=== PATIENT | female | born 1960 | race Hispanic/Latino ===

== ENCOUNTER 2024-11-25 16:44 | Emergency (ER) | payer BC ==
[~2024-11-25] VITALS: Ht 160 cm; Wt 88.9 kg
--- NOTE | 2024-11-25 16:48 | NUR ---
BG 129
--- NOTE | 2024-11-25 16:56 | ERN ---
ED Note History of Present Illness Stated Complaint: STROKE SYMPTOMS Chief Complaint: Stroke Symptoms Time Seen by MD: 16:50 Dictation: PATIENT IS A 64-YEAR-OLD FEMALE HERE WITH HER SON WITH COMPLAINTS AT APPROXIMATELY 16:20 THIS AFTERNOON THEY WERE EATING. THE SON STATES THAT HE SAW HIS MOTHER WITH A RIGHT FACIAL DROOP AND SHE WAS UNABLE TO USE HER RIGHT HAND. PATIENT ALSO HAD GARBLED SPEECH HE SAID THIS LASTED MAYBE 1-2 MINUTES AND THEN CURRENTLY HAS NOW COMPLETELY RESOLVED. NIH 0 SCORE ON APPROACH , SHE DOES DEMONSTRATES SOME MILDLY DIMINISHED PULMONARY SPECIALIST STRENGTH TO THE RIGHT HAND. SHE STATES SHE HAD A SMALL TIA SEVERAL YEARS AGO. HISTORY OF DIABETES HYPERTENSION CHOLESTEROL. IN HIS AT THE BEDSIDE. BEDSIDE BLOOD SUGAR IS 129. Allergies: Coded Allergies: Penicillins (Unverified Allergy, Unknown, 11/25/24) morphine (Unverified Allergy, Unknown, 11/25/24) Past Medical History History: Not Applicable RN Note Reviewed/Agreed w/PFSH: Yes Review of System Dictation CONSTITUTIONAL: NEGATIVE EXCEPT FOR HPI HEAD/FACE: NEGATIVE EXCEPT FOR HPI EENT: NEGATIVE EXCEPT FOR HPI RESPIRATORY: NEGATIVE EXCEPT FOR HPI GASTROINTESTINAL/ABDOMINAL: NEGATIVE EXCEPT FOR HPI GENITOURINARY: NEGATIVE EXCEPT FOR HPI MUSCULOSKELETAL: NEGATIVE EXCEPT FOR HPI INTEGUMENTARY: NEGATIVE EXCEPT FOR HPI NEUROLOGICAL/PSYCH: NEGATIVE EXCEPT FOR HP RIGHT HAND WEAKNESS AND RIGHT FACIAL DROOP. HEMATOLOGIC/LYMPHATIC: NEGATIVE EXCEPT FOR HPI ALL SYSTEMS NEGATIVE, EXCEPT NOTED ABOVE. 13 POINT REVIEW OF SYSTEMS ASSESSED AND ALL NEGATIVE EXCEPT FOR ABOVE. Initial Vital Sign VS Vital Signs Date Time Temp Pulse Resp B/P (MAP) Pulse Ox O2 Delivery O2 Flow Rate FiO2 11/25/24 16:48 98.4 69 20 176/83 95 Room Air 11/25/24 16:51 0 21 Physical Exam Dictation VITAL SIGNS REVIEWED GENERAL APPEARANCE: ALERT, ORIENTED X 3, NO ACUTE DISTRESS, WELL DEVELOPED, NOURISHED. OBESE, NO COMPLAINTS OF PAIN. HEAD AND FACE: NON-TRAUMATIC. EYES: PERRL, PINK CONJUNCTIVAS, EYELID NO TRAUMA, ANTERIOR CHAMBER WITH ARCUS SENILIS. EOMS INTACT NO VISUAL FIELD CUT EARS: PINNAS INTACT AND NO SIGNS OF TRAUMA OR ERYTHEMA EAR CANALS CLEAR AND NO DISCHARGE TM NO ERYTHEMA NOSE: NO DISCHARGE, NO BLEEDING. OROPHARYNX: MOUTH NORMAL, TONGUE PINK, PHARYNX CLEAR,NO ERYTHEMA, TONSILS NO EXUDATES, NO ABSCESSES NOTED, MUCOUS MEMBRANE MOIST NECK: SUPPLE, NON-TENDER, NO THYROMEGALY, NO MASSES, NO JVD, NO BRUITS BREAST:DEFERRED CHEST:NO TENDERNESS, NO CREPITUS, NO PARADOXICAL MOVEMENT, NO RETRACTIONS LUNGS:CLEAR, WELL-VENTILATED, SYMMETRIC, NO RALES, NO WHEEZING, NO RHONCHI, NO STRIDOR, GOOD BREATH SOUNDS BILATERALLY HEART: REGULAR RATE, REGULAR RHYTHM, NO MURMUR, NO GALLOPS VASCULAR: NO PERIPHERAL EDEMA, ABDOMEN: SOFT, POSITIVE BOWEL SOUNDS, NONDISTENDED, NO GUARDING, NONTENDER, NO REBOUND, NO MASSES NO HEPATOMEGALY, NO SPLENOMEGALY, NO AVILA'S SIGN, NO HERNIAS. RECTAL: DEFERRED GENITAL: DEFERRED NEUROLOGICAL: NORMAL SPEECH, MOTOR FUNCTION INTACT, SENSORY FUNCTION INTACT NIH IS 0 4+5 PULMONARY SPECIALIST STRENGTH RIGHT ALL ELSE IS 5+5 ESSENTIALLY INTACT TO ALL EXTREMITIES PATIENT WAS ABLE TO INDEPENDENTLY GO FROM WHEELCHAIR TO BED. MUSCULOSKELETAL: NECK NONTENDER, FULL RANGE OF MOTION, BACK NONTENDER, FULL RANGE OF MOTION, EXTREMITIES: NONTENDER, FULL RANGE OF MOTION SKIN: COLOR PINK, DRY, NO TURGOR, NO RASH, NO LACERATIONS, NO ABRASIONS, NO CONTUSIONS. LYMPHATIC: DEFERRED Results (Laboratory/Radiology) Laboratory/Radiology Laboratory Tests Test 11/25/24 16:54 11/25/24 18:11 White Blood Count 14.9 K/uL (4.8-10.8) H Red Blood Count 4.65 MIL/uL (4.00-5.50) Hemoglobin 13.4 g/dL (12.0-16.0) Hematocrit 40.8 % (36-48) Mean Corpuscular Volume 87.7 fL (79-99) Mean Corpuscular Hemoglobin 28.8 pg (27.0-33.0) Mean Corpuscular Hemoglobin Concent 32.8 g/dL (32.0-36.0) Red Cell Distribution Width 13.2 % (11.0-15.5) Platelet Count 323 K/uL (130-400) Mean Platelet Volume 9.8 fL (7.5-10.5) Immature Granulocyte % (Auto) 0.5 % (0-1) Neutrophils (%) (Auto) 54.2 % (40.0-77.0) Lymphocytes (%) (Auto) 24.2 % (21.0-51.0) Monocytes (%) (Auto) 7.9 % (3.0-13.0) Eosinophils (%) (Auto) 12.7 % (0.0-8.0) H Basophils (%) (Auto) 0.5 % (0.0-5.0) Neutrophils # (Auto) 8.1 K/uL (1.8-7.7) H Lymphocytes # (Auto) 3.6 K/uL (1.0-4.8) Monocytes # (Auto) 1.2 K/uL (0.1-1.0) H Eosinophils # (Auto) 1.88 K/uL (0.00-0.70) H Basophils # (Auto) 0.08 K/uL (0.00-0.20) Absolute Immature Granulocyte (auto 0.07 K/uL (0-1) Nucleated Red Blood Cells 0.0 % (0.0-0.19) Prothrombin Time 10.6 SEC (9.6-11.6) Prothromb Time International Ratio 1.00 (0.85-1.15) Activated Partial Thromboplast Time 25.4 SEC (26.3-35.5) L Sodium Level 141 mmol/L (136-145) Potassium Level 4.3 mmol/L (3.5-5.1) Chloride Level 102 mmol/L (101-111) Carbon Dioxide Level 27 mmol/L (21-32) Blood Urea Nitrogen 28 mg/dL (7-18) H Creatinine 1.2 mg/dL (0.5-1.0) H Glomerular Filtration Rate Calc 51 mL/min (>90) Random Glucose 128 mg/dL (70-105) H Total Calcium 9.3 mg/dL (8.5-10.1) Total Bilirubin 0.4 mg/dL (0.2-1.0) Aspartate Amino Transf (AST/SGOT) 27 U/L (10-37) Alanine Aminotransferase (ALT/SGPT) 46 U/L (12-78) Alkaline Phosphatase 85 U/L (50-136) Troponin I High Sensitivity 10 ng/L (4-50) Total Protein 8.0 g/dL (6.0-8.3) Albumin 4.2 g/dL (3.5-5.0) Urine Color YELLOW (YELLOW) Urine Appearance CLEAR (CLEAR) Urine pH 5.5 (5.0-8.0) Urine Specific [place] 1.021 (1.001-1.031) Urine Protein NEGATIVE mg/dL (NEGATIVE) Urine Glucose (UA) NEGATIVE mg/dL (NEGATIVE) Urine Ketones NEGATIVE mg/dL (NEGATIVE) Urine Occult Blood NEGATIVE (NEGATIVE) Urine Nitrate NEGATIVE (NEGATIVE) Urine Bilirubin NEGATIVE mg/dL (NEGATIVE) Urine Urobilinogen 0.2 mg/dL (0.2-1.0) Urine Leukocyte Esterase 75 [place]/uL (NEGATIVE) H Urine RBC 2-5 /HPF (0-1) H Urine WBC 2-5 /HPF (0-1) H Urine Squamous Epithelial Cells RARE /HPF (0-2) Urine Bacteria RARE /HPF (None Seen) Urine Hyaline Casts 0-1 /LPF (0-1 /LPF) [place] [id number] [address] IMAGING REPORT Signed PATIENT: TONEY JAMIL MR#: [id number] : 1960 SEX: F AGE: 64 LOCATION: [facility] ORDER 49 STATUS: REG REPORT#: [id number] SERVICE 48 REASON: WEAKNESS ORDERING PHYSICIAN: AARON CARVALHO MD PROCEDURE: HEAD WO - CT HEAD/BRAIN W/O CONTRAST EXAM: CT Head Without IV contrast. CLINICAL HISTORY: WEAKNESS TECHNIQUE: Axial computed tomography images of the head/brain without intravenous contrast. COMPARISON: None provided. FINDINGS: BRAIN: No acute bleed or infarct. Mild chronic ischemic change. VENTRICLES: No hydrocephalus. ORBITS: The orbits are unremarkable. SINUSES AND MASTOIDS: The paranasal sinuses and mastoid air cells are clear. BONES: No fracture. SOFT TISSUES: Unremarkable. IMPRESSION: No acute bleed or infarct. Mild chronic ischemic change. /[facility] Reviewed?: Yes EKG Comment: EKG NORMAL SINUS RHYTHM/HEART RATE 66/AXIS NORMAL/NO ECTOPY ED Course ED Course Orders Procedure Category Date Status Time Cbc With Differential LAB 11/25/24 Complete 16:49 Comprehensive LAB 11/25/24 Complete Metabolic Panel 16:49 Pt And Ptt LAB 11/25/24 Complete 16:49 Troponin I High LAB 11/25/24 Complete Sensitivity 16:49 12 Lead Ekg Tracing- EKG 11/25/24 Logged Technical 16:49 Ct Head/Brain W/O CT 11/25/24 Resulted Contrast 16:49 Bedside Glucose CPOE 11/25/24 Transmitted Fingerstick 16:50 Urinalysis Profile LAB 11/25/24 Complete 17:10 Clopidogrel 300mg Tab PHA 11/25/24 In Process (Plavix 300mg Tab) 18:00 Aspirin 325mg Tab PHA 11/25/24 In Process (Aspirin 325mg Tab) 18:00 Culture Urine AASHISH 11/25/24 Logged 18:24 Current Medications Medications (Trade) Dose Ordered Sig/Rick Route PRN Reason Start Time Stop Time Status Last Admin Dose Admin Aspirin (Aspirin 325mg Tab) 325 mg ONCE PO 11/25/24 18:00 11/25/24 22:00 11/25/24 17:52 Clopidogrel Bisulfate (plaVIX 300MG TAB) 300 mg ONCE PO 11/25/24 18:00 11/25/24 22:00 11/25/24 17:51 Vital Signs Date Time Temp Pulse Resp B/P (MAP) Pulse Ox O2 Delivery O2 Flow Rate FiO2 11/25/24 18:33 164/76 Room Air* 0 21 11/25/24 18:20 99.1 62 15 180/93 96 Room Air* 0 21 11/25/24 16:51 99.1 68 18 160/88 96 Room Air* 0 21 11/25/24 16:48 98.4 69 20 176/83 95 Room Air 1718/CT OF THE HEAD IS NEGATIVE, BEDSIDE BLOOD SUGAR 129. WE WILL FOLLOW UP FOR SOC WITH NEUROLOGIST AND ANTICIPATE TRANSFER TO HIGHER LEVEL OF CARE. 1725/SPOKE WITH PATIENT AND HER SON AT LENGTH PRIOR TO THE SOC. PATIENT STATES SHE HAD A SIMILAR EPISODE ON FRIDAY AND WENT TO A [facility] AND WAS TOLD BY THE DOCTOR THERE THAT THERE WAS NOTHING SHE COULD DO SINCE THE SYMPTOMS HAD RESOLVED AND TREATED HER AFTER LABS AND URINE WAS COLLECTED FOR UTI. SHE IS CURRENTLY ON MACROBI SHE THEN STATES SHE SAW HER PRIMARY CARE DO CTOR TODAY AND TOLD HER THAT IS SINCE THE SYMPTOMS HAD RESOLVED THAT SHE COULD GONE HOME. IF SHE HAD ANY MORE SYMPTOMS TO GO TO THE NEAREST EMERGENCY ROOM. 1730/spoke with /tele neurology. He said patient has NIH score was 0 and she was at baseline at the present time. He said if the platelets were in the normal range and there was no bleed on the CT to administer Plavix 300 mg p.o. along with the [id number] p.o. Differentials could be early CVA versus focal seizure. Recommended patient be transferred to higher level of care for Neurology workup to rule out focal seizure versus CVA. We will administer the medications recommended and initiate transfer patient her son agreed to be transferred to a higher level of care. 1738/Reshma RN tellers supervisor and made her aware of need for transfer to higher level of care. 173/SPOKE WITH MOHINDER AT THE [facility] TRANSFER CENTER SHE WAS GOING TO CONNECT ME WITH HOWEVER HE WAS UNAVAILABLE AT THAT TIME. SHE STATES SHE WILL CALL BACK IN A MINUTE SOON SHE HAS A PHYSICIAN AVAILABLE. PATIENT REMAINS WITH A NIH OF 0. BLOOD PRESSURE 164/76 RIGHT PULMONARY SPECIALIST IS MILDLY DIMINISHED. 1849/SPOKE WITH MOHINDER AT THE [facility] TRANSFER AND ALSO DR ARREOLA, REVIEWED HPI CURRENT NIH MY CONSULTATION WITH /NEUROLOGIST. HE IS AWARE THAT PATIENT HAS RECEIVED PLAVIX 300 MG AND ASPIRIN 3AND THAT SHE HAD HAD A SIMILAR EPISODE ON FRIDAY AND IT BE ONTO A LOCAL URGENT CARE AND TREATED FOR UTI. SHE IS CURRENTLY ON MACROBID AND HE WAS MADE AWARE THE ALSO. HE ACCEPTED PATIENT IN TRANSFER. 2 HEART Score Response (Comments) Value History: Low suspicion (0) 0 Age: 45-65yrs (+1) 1 Risk Factors: 3+ risk factors (+2) 2 Initial Troponin: Normal limit (0) 0 Total 3 Medical Decision Making MDM MDM: DIFFERENTIAL DIAGNOSIS:/ELECTROLYTE IMBALANCE/DEHYDRATION/HYPOGLYCEMIA/INFECTION/ENCEPHALOPATHY/TIA RATIONALE: TESTS CONSIDERED AND ORDERED SECONDARY TO SHARED DECISION MAKING INCLUDE: LABS, ECG AND RADIOLOGY PREVIOUS OUTSIDE RECORDS REVIEWED: OLD ER VISITS. RISK OF COMPLICATION AND/OR MORBIDITY OR MORTALITY OF PATIENT MANAGEMENT: N MODERATE MEDICATIONS-PER MEDICATION RECONCILIATION NEED FOR HOSPITALIZATION: PATIENT DOES MEET CRITERIA FOR HOSPITALIZATION. PATIENT WILL BE TRANSFERRED TO A HIGHER LEVEL OF CARE FOR NEUROLOGY NEED FOR EMERGENCY MAJOR/MINOR SURGERY: NO THERE ARE NO SOCIAL CONCERNS WITH THIS PATIENT. PRESCRIPTION DRUG MANAGEMENT PRESCRIPTIONS WILL INCLUDE SYMPTOMATIC CARE PATIENT'S PRIOR EXTERNAL MEDICAL RECORDS FROM OTHER ER VISITS WERE REVIEWED BY ME INDICATED. PRIOR TESTING AND RESULTS FROM PREVIOUS VISITS WERE REVIEWED. PRIOR TESTS WERE TAKEN INTO ACCOUNT WITH MEDICAL DECISION MAKING AND RESOURCE UTILIZATION, INDEPENDENT HISTORIAN/HISTORIANS WERE USED TO OBTAIN COMPLETE MEDICAL HISTORY. I INDEPENDENTLY INTERPRETED THE TEST THAT WERE PERFORMED, RESULTS WERE REVIEWED BY ME AND CONSIDERED FINDINGS ON RADIOLOGY IF ORDERED. MEDICAL MANAGEMENT AND EXAMINATION INTERPRETATION DISCUSSIONS WERE HAD BY ME WITH OTHER QUALIFIED HEALTHCARE PROFESSIONALS INDICATED FOR THE PATIENT'S CARE. DX & DISP Disposition: Transfer Decision to Admit Time: 17:38 Departure Impression: Primary Impression: TIA (transient ischemic attack) Additional Impressions: Leukocytosis, Stage 3 chronic kidney disease, Diabetes mellitus with hyperglycemia Condition: Stable Additional Instructions: FOLLOW-UP WITH PRIMARY CARE PROVIDER IN 1 TO 2 DAYS. TAKE MEDICATIONS DIRECTED HERE IN THE EMERGENCY ROOM. OKAY TO CONTINUE HOME MEDICATIONS UNLESS OTHERWISE DISCUSSED DURING YOUR VISIT IN THE EMERGENCY ROOM TODAY. RETURN TO YOUR NEAREST EMERGENCY ROOM IF SYMPTOMS WORSEN OR IF THERE IS NO IMPROVEMENT. CALL 911 IF YOU NEED IMMEDIATE ASSISTANCE. TAKE TYLENOL OR MOTRIN [id number] NEEDED AND IF NO CONTRAINDICATIONS ARE PRESENT. INCREASE ORAL HYDRATION. A WOUND CULTURE OR URINE CULTURE WAS ORDERED HERE IN THE EMERGENCY ROOM DEPARTMENT PLEASE FOLLOW-UP WITH PRIMARY CARE PROVIDER AND ADVISE THEM TO GET REPEAT PORTS FROM OUR FACILITY. IF YOU HAD ANY DUNIA WRAP/SPLINTS THAT WERE APPLIED HERE, PLEASE DO NOT REMOVE THEM UNTIL YOU SEE YOUR PRIMARY CARE OR SPECIALTY. F FOLLOW ALL RECOMMENDATIONS AND TREATMENTS FROM YOUR DOCTOR AT [facility] I have reviewed the case, and I agree with, Diagnosis and Plan BERT MICHELLE NP Nov 25, 2024 16:56
--- NOTE | 2024-11-25 17:00 | NUR ---
RETURNED FRPM CT
[2024-11-25 17:10] LABS: IMMATURE GRANULOCYTE ABSOLUTE 0.07 K/uL (0-1); NUCLEATED RED BLOOD CELLS 0.0 % (0.0-0.19); PLATELET COUNT (AUTO) 323 K/uL (130-400); RED BLOOD CELL COUNT(AUTO) 4.65 MIL/uL (4.00-5.50); RED CELL DISTRIBUTION WIDTH 13.2 % (11.0-15.5); WHITE BLOOD COUNT (AUTO) 14.9 K/uL (4.8-10.8)
[2024-11-25 17:16] LABS: INR 1.0 (0.85-1.15)
--- NOTE | 2024-11-25 17:16 | HMCIMG ---
EXAM: CT Head Without IV contrast. CLINICAL HISTORY: WEAKNESS TECHNIQUE: Axial computed tomography images of the head/brain without intravenous contrast. COMPARISON: None provided. FINDINGS: BRAIN: No acute bleed or infarct. Mild chronic ischemic change. VENTRICLES: No hydrocephalus. ORBITS: The orbits are unremarkable. SINUSES AND MASTOIDS: The paranasal sinuses and mastoid air cells are clear. BONES: No fracture. SOFT TISSUES: Unremarkable. IMPRESSION: No acute bleed or infarct. Mild chronic ischemic change. /[place]
[2024-11-25 17:23] LABS: GLUCOSE,RANDOM 128.0 mg/dL (70-105); SODIUM SERUM 141.0 mmol/L (136-145); UREA NITROGEN, BLOOD 28.0 mg/dL (7-18)
[2024-11-25 17:24] LABS: CREATININE 1.2 mg/dL (0.5-1.0); GLOMERULAR FILTR. RATE CALC 51.0 mL/min (>90)
[2024-11-25 17:30] LABS: ASPARTATE AMINOTRANSFERASE 27.0 U/L (10-37); TOTAL PROTEIN, SERUM 8.0 g/dL (6.0-8.3)
[2024-11-25] MEDS: ASPIRIN 325MG TAB PO SCH (17:52)
[2024-11-25 18:20] VITALS: RESP 15; O2SAT 96
[2024-11-25 18:21] LABS: APPEARANCE,URINE CLEAR (CLEAR); GLUCOSE, URINE (UA) NEGATIVE (NEGATIVE); LEUKOCYTE ESTERASE ,URINE 75 Leu/uL (NEGATIVE); NITRATE,URINE NEGATIVE (NEGATIVE); OCCULT BLOOD,URINE NEGATIVE (NEGATIVE)
[2024-11-25 18:24] LABS: ADD UA MICROSCOPIC YES
[2024-11-25 18:26] LABS: HYALINE CASTS, URINE 0-1 /LPF (0-1 /LPF); SQUAMOUS EPITHELIAL CELL,UR RARE /HPF (0-2)
--- NOTE | 2024-11-25 19:21 | BSKYNEURO ---
[facility] Procedure Note [facility] Consult Consult [facility] Note # Demographics Consult Type: Acute Stroke Level 1 (0-4.5 hrs) Patient Location: Emergency Room First Name: TONEY Last Name: LOULOU Date of : 1960 Age: 64 Gender: Female Facility: [facility] Time of Initial Page (Central Time): 11/25/2024 17:22 First Contact with Site (Central Time): 11/25/2024 17:24 # HPI Chief Complaint: - weakness (focal) Handedness: Right History: 64 yo F with PMHx of HTN and DM, who developed sudden onset right facial droop and right hand weakness at around 4:20 PM today. Patient's symptoms resolved with 10 minutes. Patient reported to have couple of similar episodes last week. Patient is back to baseline by the time she arrived to ED. Neuro exam nonfocal. Duration: - resolved # Scores Time of exam and NIHSS (Central Time): 11/25/2024 17:30 Level of Consciousness 1a: [0] = Alert; keenly responsive LOC Questions 1b: [0] = Answers both questions correctly LOC Commands 1c: [0] = Performs both tasks correctly Best Gaze 2: [0] = Normal Visual 3: [0] = No visual loss Facial Palsy 4: [0] = Normal symmetrical movements Motor Arm Left 5a: [0] = No drift Motor Arm Right 5b: [0] = No drift Motor Leg Left 6a: [0] = No drift Motor Leg Right 6b: [0] = No drift Limb Ataxia 7: [0] = Absent Sensory 8: [0] = Normal Best Language 9: [0] = No aphasia Dysarthria 10: [0] = Normal Extinction and Inattention 11: [0] = No abnormality NIHSS Total: 0 # Data Head CT: - no bleed # Assessment Impression: - Stroke Mimic Patient would benefit from further evaluation with MRI brain and Routine EEG. Differential Diagnosis: - Seizure - Transient Ischemic Attack - Ischemic Stroke (Acute) # Plan Thrombolytic/Intervention: NOT IV Thrombolysis or IA Intervention candidate Thrombolytic Exclusion (< 3 hour window): - Individualized disability discussion had with the patient and/or family, and they have determined the current deficits to be non-disabling and do not wish to proceed with thrombolytic - NIHSS = 0 Intraarterial Exclusion: - clinical exam not consistent with presence of large vessel occlusion (LVO), can reconsider if LVO found on vascular imaging Target Blood Pressure: - SBP < 220 - DBP < 120 Permissive HTN first 24 hrs, then normotensive Labs: - hemoglobin A1c - lipid panel Imaging: (urgency: STAT): - CT Head without contrast AND call back with results if abnormal - MRI Brain without contrast - MR Angiogram Head without contrast - MR Angiogram Neck with contrast Diagnostic Test: - echo with bubble study - EEG Therapy/Evaluation: - NPO until swallow evaluation - PT/OT evaluation - speech/swallow consultation Medication: ASA 325 mg x 1 Plavix 300 mg x 1 DAPT with ASA 81 mg QD and Plavix 75 mg QD for 21 days then ASA 81 mg QD monotherapy Other: - If patient has any neurological deterioration please call me back immediately - I have discussed my recommendations with the referring provider - telemetry monitoring - permissive hypertension Plan discussed with patient in detail, all questions answered. Patient agrees with current management plan after discussion. Disposition: admit # Logistics Attestation of consult completion: The patient is located at: [facility]. Facility staff participated in the visit. I performed this telemedicine visit from my offsite office utilizing interactive 2 way audio and visual telecommunication technology at the request of the onsite emergency room provider. Total time spent in telemedicine encounter: I spent 21 minutes reviewing clinical data and/or imaging, obtaining history, examining the patient, communicating with the onsite care team, and in preparation of this report. # Demographics First Name: TONEY Last Name: JAMIL Facility: [facility] Neuro Consult Order placed for: Yes TAM GOVEA MD Nov 25, 2024 19:21
--- NOTE | 2024-11-25 20:00 | NUR ---
stec contacted at this time
--- NOTE | 2024-11-25 20:08 | NUR ---
report provided to giovanna [place] [facility] at this time
[2024-11-25 20:25] VITALS: BP 166/85; PULSE 66; TEMP 99
--- NOTE | 2024-11-25 20:26 | NUR ---
notified elodia tyson of stect arrival and eta of pt
--- NOTE | 2024-11-26 06:49 | EKG ---
[facility] Test Date: 2024-11-25 Test Time: 17:08:06 Pat Name: TONEY JAMIL Department: [facility] Room: Gender: F Department Administrator: [id number] : 1960 Requested By: AARON CARVALHO Order Number: [id number] Reading MD: Chandan John Measurements Intervals [place] Rate: 66 P: 25 ID: [id number] QRS: 32 QRSD: 98 T: 37 QT: 437 QTc: 459 Interpretive Statements Sinus rhythm No previous ECG available for comparison Electronically Signed On 11-26-2024 10:56:15 CDT by Chandan John Please click the below link to view image of tracing.
== END 2024-11-25 20:35 | disposition short-term general hospital (02) ==
LOC: EDH 16:44
DX: G45.9 Transient cerebral ischemic attack, unspecified (principal); D72.829 Elevated white blood cell count, unspecified; I12.9 Hypertensive chronic kidney disease with stage 1 through stage 4 chronic kidney disease, or unspecified chronic kidney disease; E11.22 Type 2 diabetes mellitus with diabetic chronic kidney disease; N18.30 Chronic kidney disease, stage 3 unspecified; E11.65 Type 2 diabetes mellitus with hyperglycemia; Z88.0 Allergy status to penicillin; Z88.5 Allergy status to narcotic agent
CPT/HCPCS: 36415; 70450; 80053; 81001; 84484; 85025; 85610; 85730; 87086; 93005; 99285